=== PATIENT | female | born 1990 | race Caucasian/White ===

== ENCOUNTER 2016-07-21 21:00 | Emergency (ER) | payer MEDICAID, OTHER ==
[2016-07-21] MEDS ORDERED: Alum Hydrox/Mag Hydrox/Simeth 30 ML, Lidocaine 2% 15 ML PO ONE ×2 (22:32)
[2016-07-21 22:59] VITALS: BP 111/78
--- NOTE | 2016-07-21 23:33 | EDM.PDOC ---
ED HPI GI/ABDOMINAL - General Chief Complaint: Abdominal Pain Stated Complaint: FAINTED Time Seen by Provider: 07/21/16 22:21 Source: Reports: Patient History Limitations: Reports: No limitations - History of Present Illness INITIAL COMMENTS - FREE TEXT/NARRATIVE: This young lady came in with the complaint of passing out. She's been having a lot of upper abdominal pains and has been seeing a crepe machine operator. He thinks it was a pulled muscle but she is supposed to have an EGD in the near future. Tonight she went to the bathroom and as she was returning she had this really severe upper abdominal pain and then suddenly became dizzy and fell to the floor. Her mom said she seemed to be unresponsive for about a minute. She' s had nausea vomiting and diarrhea for the past couple of days. She just had diarrhea today no vomiting. She denies any possibility of - Related Data Allergies/ADRs: Allergies Allergy/AdvReac Type Severity Reaction Status Date / Time amoxicillin [Amoxicillin] Allergy Rash Verified 07/21/16 21:29 latex Allergy Rash Verified 07/21/16 21:29 Home Meds: Home Meds Cetirizine [ZyrTEC] 10 mg PO DAILY 09/29/14 [History] PNV95/Ferrous Fumarate/FA [ Multivitamins] 1 tab PO DAILY 09/29/14 [ History] Cholecalciferol (Vitamin D3) [Vitamin D] 2,000 unit PO DAILY 04/21/15 [History] ClonazePAM [KlonoPIN] 1 mg PO BID PRN 04/21/15 [History] [place]-3 Fatty Acids [Fish Oil] 500 mg PO DAILY 04/21/15 [History] Topiramate [Qudexy Xr] 25 mg PO BID 12/28/15 [History] Past Medical History Other HEENT History: Optic neuritis 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: Other Musculoskeletal History: Dislocated right knee 2003 Neurological History: Reports: Concussion, Migraines, Seizure Psychiatric History: Reports: Anxiety, Depression, Eating disorders, Emotional problems, Panic attack, PTSD, Suicide attempt Endocrine/Metabolic History: Reports: Diabetes, type II, Obesity/BMI 30+, Other (see below) Other Endocrine/Metabolic History: Diet controlled - Infectious Disease History Infectious Disease History: Reports: Chicken pox - Past Surgical History GI Surgical History: Reports: Cholecystectomy Social & Family History - Tobacco Use Smoking Status *Q: Never Smoker Second Hand Smoke Exposure: No - Caffeine Use Caffeine Use: Reports: Coffee, Soda - Alcohol Use Days Per Week of Alcohol Use: 0 - Recreational Drug Use Recreational Drug Use: No ED ROS GENERAL - Review of Systems Review Of Systems: ROS reveals no pertinent complaints other than HPI. ED EXAM, GI/ABD - Physical Exam Exam: See Below Exam Limited By: No limitations General Appearance: alert, WD/WN, no apparent distress Eyes: bilateral: normal appearance Ears: normal external exam Nose: normal inspection Throat/Mouth: Normal oropharynx Head: atraumatic Neck: normal inspection Respiratory/Chest: no respiratory distress, lungs clear Cardiovascular: normal peripheral pulses, regular rate, rhythm, no murmur GI/Abdominal: soft, no mass, other (There is mild generalized upper abdominal tenderness) Back Exam: normal inspection Extremities: normal inspection Neurological: alert, oriented, CN II-XII intact, no motor/sensory deficits Psychiatric: normal affect Skin Exam: Warm, Dry Course - Vital Signs Last Recorded V/S: Last Vital Signs Temp 36.2 C 07/21/16 21:28 Pulse 74 07/21/16 22:59 Resp 14 07/21/16 22:59 BP 111/78 07/21/16 22:59 Pulse Ox 97 07/21/16 22:59 Orthostatic Blood Pressure [ 111/78 Standing] Orthostatic Blood Pressure [ 121/73 Sitting] Orthostatic Blood Pressure [ 105/65 Supine] - Orders/Labs/Meds Orders: Active Orders 24 hr Category Date Time Status Orthostatic Vital Signs [RC] ASDIRECTED Care 07/21/16 22:33 Active Labs: Laboratory Tests 07/21/16 07/21/16 07/21/16 Range/Units 22:31 22:31 22:31 WBC 8.2 (4.5-11.0) K/uL RBC 4.35 (3.30-5.50) M/uL Hgb 12.7 (12.0-15.0) g/dL Hct 37.6 (36.0-48.0) % MCV 86 (80-98) fL MCH 29 (27-31) pg MCHC 34 (32-36) % Plt Count 223 (150-400) K/uL Neut % (Auto) 58 (36-66) % Lymph % (Auto) 33 (24-44) % [place] % (Auto) 7 H (2-6) % Eos % (Auto) 1 L (2-4) % Baso % (Auto) 1 (0-1) % Sodium 142 (140-148) mmol/L Potassium 3.6 (3.6-5.2) mmol/L Chloride 106 (100-108) mmol/L Carbon Dioxide 28 (21-32) mmol/L Anion Gap 11.6 (5.0-14.0) mmol/L BUN 11 (7-18) mg/dL Creatinine 1.0 (0.6-1.0) mg/dL Est Cr Clr Drug Dosing 82.18 mL/min Estimated GFR (MDRD) > 60 (>60) Glucose 85 (74-106) mg/dL Calcium 8.7 (8.5-10.1) mg/dL Total Bilirubin 0.2 (0.2-1.0) mg/dL AST 13 L (15-37) U/L ALT 21 (12-78) U/L Alkaline Phosphatase 58 (46-116) U/L Total Protein 6.9 (6.4-8.2) g/dL Albumin 3.7 (3.4-5.0) g/dL Globulin 3.2 (2.3-3.5) g/dL Albumin/Globulin Ratio 1.2 (1.2-2.2) Amylase 42 (25-115) U/L Lipase 191 (73-393) U/L Urine Color Urine Appearance Urine pH (4.5-8.0) Ur Specific [place] (1.008-1.030) Urine Protein (NEGATIVE) mg/dL Urine Glucose (UA) (NEGATIVE) mg/dL Urine Ketones (NEGATIVE) mg/dL Urine Occult Blood (NEGATIVE) Urine Nitrite (NEGATIVE) Urine Bilirubin (NEGATIVE) Urine Urobilinogen (NORMAL) mg/dL Ur Leukocyte Esterase (NEGATIVE) Urine RBC (0-5) Urine WBC (0-5) Ur Epithelial Cells Amorphous Sediment Urine Bacteria Urine Mucus Urine Other Urinalysis Comment 07/21/16 Range/Units 22:37 WBC (4.5-11.0) K/uL RBC (3.30-5.50) M/uL Hgb (12.0-15.0) g/dL Hct (36.0-48.0) % MCV (80-98) fL MCH (27-31) pg MCHC (32-36) % Plt Count (150-400) K/uL Neut % (Auto) (36-66) % Lymph % (Auto) (24-44) % [place] % (Auto) (2-6) % Eos % (Auto) (2-4) % Baso % (Auto) (0-1) % Sodium (140-148) mmol/L Potassium (3.6-5.2) mmol/L Chloride (100-108) mmol/L Carbon Dioxide (21-32) mmol/L Anion Gap (5.0-14.0) mmol/L BUN (7-18) mg/dL Creatinine (0.6-1.0) mg/dL Est Cr Clr Drug Dosing mL/min Estimated GFR (MDRD) (>60) Glucose (74-106) mg/dL Calcium (8.5-10.1) mg/dL Total Bilirubin (0.2-1.0) mg/dL AST (15-37) U/L ALT (12-78) U/L Alkaline Phosphatase (46-116) U/L Total Protein (6.4-8.2) g/dL Albumin (3.4-5.0) g/dL Globulin (2.3-3.5) g/dL Albumin/Globulin Ratio (1.2-2.2) Amylase (25-115) U/L Lipase (73-393) U/L Urine Color Yellow Urine Appearance Clear Urine pH 7.0 (4.5-8.0) Ur Specific [place] 1.010 (1.008-1.030) Urine Protein Negative (NEGATIVE) mg/dL Urine Glucose (UA) Normal (NEGATIVE) mg/dL Urine Ketones Negative (NEGATIVE) mg/dL Urine Occult Blood Negative (NEGATIVE) Urine Nitrite Negative (NEGATIVE) Urine Bilirubin Negative (NEGATIVE) Urine Urobilinogen Normal (NORMAL) mg/dL Ur Leukocyte Esterase Negative (NEGATIVE) Urine RBC 5-10 H (0-5) Urine WBC 5-10 H (0-5) Ur Epithelial Cells Few Amorphous Sediment Few Urine Bacteria Few Urine Mucus Rare Urine Other See note Urinalysis Comment Clue cells seen Meds: Medications Discontinued Medications Generic Name Dose Route Start Last Admin Trade Name Freq PRN Reason Stop Dose Admin Al Hydroxide/Mg Hydroxide 30 0 ml 07/21/16 22:32 07/21/16 22:55 ml/ Lidocaine HCl 15 ml PO 07/21/16 22:33 45 ml ONETIME ONE Administration - Re-Assessments/Exams Free Text/Narrative Re-Assessment/Exam: 07/22/16 07:04 Orthostatics are negative. Labs were unremarkable. I believe most likely this was a vasovagal episode. I agree she needs an EGD. Departure - Departure Time of Disposition: 23:30 Disposition: Home, Self-Care 01 Condition: fair Clinical Impression: Vasovagal syncope Instructions: Vasovagal Syncope, Adult Referrals: PCP,None [Primary Care Provider] - Forms: ED Department Discharge Additional Instructions: Vasovagal syncope is when you pass out because of a bad abdominal cramp. This is pretty common. This may be associated with the diarrhea but you've had recently. Most of his stomach pain no might be due to gastritis. Try taking omeprazole (Prilosec) 20 mg daily. You might also try an antacids like Maalox Mylanta or even TUMS. Followup with your Dr. if you're not better in a few days. Be sure to drink a lot of liquids every day - My Orders Last 24 Hours: My Active Orders 07/21/16 22:33 Orthostatic Vital Signs [RC] ASDIRECTED - Assessment/Plan Last 24 Hours: My Active Orders 07/21/16 22:33 Orthostatic Vital Signs [RC] ASDIRECTED
== END 2016-07-21 23:53 | disposition home or self-care (01) ==
LOC: JP.ED 21:00
DX: R55 Syncope and collapse (principal); F41.0 Panic disorder [episodic paroxysmal anxiety]; F32.9 Major depressive disorder, single episode, unspecified; E11.9 Type 2 diabetes mellitus without complications; E66.9 Obesity, unspecified; Z68.34 Body mass index [BMI] 34.0-34.9, adult; Z90.49 Acquired absence of other specified parts of digestive tract; Z79.899 Other long term (current) drug therapy; Z88.1 Allergy status to other antibiotic agents; Z91.040 Latex allergy status
CPT/HCPCS: 36415; 80053; 81001; 82150; 83690; 85025; 99284; A9270

== ENCOUNTER 2016-10-02 11:20 | Emergency (ER) | payer OTHER ==
--- NOTE | 2016-10-02 12:03 | EDM.PDOC ---
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 She denies complaints of cramping or other concerns at this time. She is routinely seen by Fan Resendez. She had an ultrasound on with her recent visit that showed fetus with cardiac activity. Her estimated due date is 04/18/17. Her blood type is AB+ Immunizations up to date. Onset: Today Onset Date: 10/02/16 Duration: Minutes:, Getting Worse, Other (Increase to vaginal bleeding with large clots size of baseball. 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 They are managed with Cognitive behavioral therapy.) Psychiatric History: Reports: Anxiety, Depression, Eating Disorders, Emotional Problems, Panic Attack, PTSD, Suicide Attempt Endocrine/Metabolic History: Reports: Obesity/BMI 30+, Other (See Below) Other Endocrine/Metabolic History: Diet controlled - Infectious Disease History Infectious Disease History: Reports: Chicken Pox - Past Surgical History GI Surgical History: Reports: Cholecystectomy Social & Family History - Tobacco Use Smoking Status *Q: Never Smoker Second Hand Smoke Exposure: No - Caffeine Use Caffeine Use: Reports: Soda - Alcohol Use Days Per Week of Alcohol Use: 0 - Recreational Drug Use Recreational Drug Use: No ED ROS GENERAL - Review of Systems Review Of Systems: See Below Constitutional: Reports: Diaphoresis HEENT: Reports: No Symptoms Respiratory: Reports: No Symptoms Cardiovascular: Reports: No Symptoms. Denies: Blood Pressure Problem, Dyspnea on Exertion, Lightheadedness, Palpitations, Syncope Endocrine: Reports: No Symptoms GI/Abdominal: Reports: Nausea, Other (Nausea). Denies: Abdominal Pain, Constipation, Diarrhea, Vomiting : Reports: Other (Vaginal bleeding with blood clots. ). Denies: Flank Pain, Frequency, Incontinence, Pain Musculoskeletal: Reports: No Symptoms. Denies: Joint Swelling, Muscle Pain Skin: Reports: No Symptoms, Pallor, Diaphoresis. Denies: Cyanosis, Jaundice, Wound Neurological: Denies: Confusion, Dizziness, Headache, Numbness, Seizure, Syncope , Trouble Speaking, Difficulty Walking, Weakness Psychiatric: Reports: Other (Patient upset with vaginal bleeding, tearful). Denies: Agitation, Anxiety, Confusion Hematologic/Lymphatic: Reports: Other (Vaginal bleeding) Free Text/Narrative/Comment: Patient reports was not planned. She states she has been adjusting well to . ED EXAM - Physical Exam Exam: See Below Exam Limited By: No Limitations General Appearance: Alert, WD/WN, Mild Distress, Other (Patient tearful, upset with vaginal bleeding, thought of loss. ) Eye Exam: Bilateral Eye: Normal Inspection, PERRL Ears: Normal External Exam, Normal Canal, Hearing Grossly Normal, Normal TMs Nose: Normal Inspection, Normal Mucosa, No Blood Throat/Mouth: Normal Inspection, Normal Lips, Normal Teeth, Normal Gums, Normal Oropharynx, Normal Voice, No Airway Compromise Head: Atraumatic, Normocephalic Respiratory/Chest: No Respiratory Distress, Lungs Clear, Normal Breath Sounds, No Accessory Muscle Use, Chest Non-Tender Cardiovascular: Normal Peripheral Pulses, Regular Rate, Rhythm, No Edema, No Gallop, No JVD, No Murmur, No Rub GI/Abdominal: Normal Bowel Sounds, Soft, Non-Tender, No Organomegaly, No Distention, No Mass (Female) Exam: Other (Vaginal bleeding about 100ml with clot x 2 size of golfball and baseball while in ER. ) Heart Tones: Not Geary Back Exam: Normal Inspection, Full Range of Motion Extremities: Normal Inspection, Normal Range of Motion, Non-Tender, No Pedal Edema, Normal Capillary Refill Neurological: Alert, Oriented, CN II-XII Intact, Normal Cognition, Normal Gait, Normal Reflexes, No Motor/Sensory Deficits Psychiatric: Tearful (Upset with vaginal bleeding), Other Lymphatic: No Adenopathy Course - Vital Signs Last Recorded V/S: Last Vital Signs Temp 36.3 C 10/02/16 11:25 Pulse 64 10/02/16 13:30 Resp 16 10/02/16 13:30 BP 114/66 10/02/16 13:30 Pulse Ox 98 10/02/16 13:30 - Orders/Labs/Meds Orders: Active Orders 24 hr Category Date Time Status OB 1st Tri Sgl 1st Gest [US] Stat Exams 10/02/16 11:33 Taken Sodium Chloride 0.9% [Saline Flush] Med 10/02/16 12:25 Active 10 ml FLUSH ASDIRECTED PRN Saline Lock Insert [OM.PC] Routine Oth 10/02/16 12:25 Ordered Medication Orders Sodium Chloride (Saline Flush) 10 ml FLUSH ASDIRECTED PRN PRN Reason: Keep Vein Open Labs: Laboratory Tests 10/02/16 10/02/16 Range/Units 12:05 12:05 WBC 13.6 H (4.5-11.0) K/uL RBC 4.84 (3.30-5.50) M/uL Hgb 14.2 (12.0-15.0) g/dL Hct 41.2 (36.0-48.0) % MCV 85 (80-98) fL MCH 29 (27-31) pg MCHC 35 (32-36) % Plt Count 220 (150-400) K/uL HCG, Quant 87677 H (0-6) mIU/mL Meds: Medications Generic Name Dose Route Start Last Admin Trade Name Freq PRN Reason Stop Dose Admin Sodium Chloride 10 ml 10/02/16 12:25 Saline Flush FLUSH ASDIRECTED PRN Keep Vein Open Discontinued Medications Generic Name Dose Route Start Last Admin Trade Name Freq PRN Reason Stop Dose Admin Acetaminophen 1,000 mg 10/02/16 12:44 10/02/16 12:54 Tylenol Extra Strength PO 10/02/16 12:45 1,000 mg ONETIME ONE Administration Hydromorphone HCl 0.5 mg 10/02/16 13:08 10/02/16 13:24 Dilaudid IVPUSH 10/02/16 13:09 0.5 mg ONETIME ONE Administration Sodium Chloride 1,000 mls @ 1,000 mls/hr 10/02/16 12:23 10/02/16 12:26 Normal Saline IV 10/02/16 13:22 1,000 mls/hr .BOLUS ONE Administration Ondansetron HCl 4 mg 10/02/16 13:08 10/02/16 13:24 Zofran IVPUSH 10/02/16 13:09 4 mg ONETIME ONE Administration - Re-Assessments/Exams Free Text/Narrative Re-Assessment/Exam: 10/02/16 1158 Patient became more diaphoretic, pale, vital signs rechecked, HR 83 to 88, Blood pressure systolic 120's. IV started with normal saline bolus. 10/02/16 13:06 Patient complains of increase in pelvic cramping with nausea, will give zofran and dilaudid IV to assist with discomfort. Free Text/Narrative Re-Assessment/Exam: 10/02/16 14:28 Patient reports she feels better. She will be discharged to home with hydrocodone to use for cramping. Follow up as directed with Dr. Davis. Departure - Departure Time of Disposition: 14:30 Disposition: Home, Self-Care 01 Condition: fair Clinical Impression: Complete - Discharge Information Instructions: Miscarriage, [id number] Referrals: PCP,None [Primary Care Provider] - Forms: ED Department Discharge Additional Instructions: You may have continued vaginal bleeding and cramping. You can take hydrocodone as directed for pain. Keep yourself hydrated. Take the next two days off. You need to watch for fever or increase in vaginal bleeding. If these occur, return to the nearest emergency room for evaluation. Follow up with Dr. Davis this week Monday or Monday for recheck. Follow up with your counselor as directed. - My Orders Last 24 Hours: My Active Orders 10/02/16 11:33 OB 1st Tri Sgl 1st Gest [US] Stat 10/02/16 12:25 Sodium Chloride 0.9% [Saline Flush] 10 ml FLUSH ASDIRECTED PRN Saline Lock Insert [OM.PC] Routine - Assessment/Plan Last 24 Hours: My Active Orders 10/02/16 11:33 OB 1st Tri Sgl 1st Gest [US] Stat 10/02/16 12:25 Sodium Chloride 0.9% [Saline Flush] 10 ml FLUSH ASDIRECTED PRN Saline Lock Insert [OM.PC] Routine
[2016-10-02] MEDS ORDERED: Sodium Chloride 0.9% 1,000 ML IV ONE (12:23)
[2016-10-02] MEDS ORDERED: Sodium Chloride 0.9% 10 ML Syringe FLUSH PRN (12:25)
[2016-10-02] MEDS ORDERED: Acetaminophen 500 MG Tab PO ONE (12:44)
[2016-10-02] MEDS ORDERED: HYDROmorphone 0.5 MG/0.5 ML Syringe IVPUSH ONE (13:08)
[2016-10-02] MEDS ORDERED: Ondansetron 4 MG/2 ML SDV IVPUSH ONE (13:08)
[2016-10-02 13:45] VITALS: BP 114/66
== END 2016-10-02 14:49 | disposition home or self-care (01) ==
LOC: JP.ED 11:20
DX: O03.9 Complete or unspecified spontaneous abortion without complication (principal); F41.9 Anxiety disorder, unspecified; F32.9 Major depressive disorder, single episode, unspecified; E66.9 Obesity, unspecified; Z68.34 Body mass index [BMI] 34.0-34.9, adult; Z3A.11 11 weeks gestation of pregnancy; Z90.49 Acquired absence of other specified parts of digestive tract; Z79.899 Other long term (current) drug therapy; Z88.1 Allergy status to other antibiotic agents; Z91.040 Latex allergy status
CPT/HCPCS: 36415; 76801; 84702; 85027; 96361; 96374; 96375; 99284; A9270; J1170; J2405; J7040